=== PATIENT | female | born 1960 | race Caucasian/White ===

== ENCOUNTER 2018-02-25 18:16 | Outpatient (REF) | payer BC, SELFPAY ==
--- NOTE | 2018-02-25 14:20 | SKI_PTH ---
PATIENT: Macie Serrato LOC: [facility] U#:[id number] AGE/SX: 57/F ROOM: RE02/25/[address]: Douglas Perdomo DO : 1960 BED: DIS: 02/25/2018 SPEC #: [id number] RECD: 02/25/18 18:41 STATUS: BLANCA REMargaret #: [id number] KATE: 02/25/18 14:[address]: Douglas Perdomo DEPT: Surgical Specimen RECD BY: Simona Estes ENTERED: 02/25/18 18:41 SP TYPE: BALTAZAR OSPINA DR: Ynes Han MD, DC Tissues: 1 - SKIN BIOPSY(SHAVE/PUNCH) Procedures: SKIN LEVEL 4 Comments: [id number]
== END 2018-02-25 18:36 ==
LOC: LBN 18:16
PROVIDERS: PCP Family Medicine; Visit Provider Otolaryngology Otolaryngology/Facial Plastic Surgery
DX: D18.01 Hemangioma of skin and subcutaneous tissue (principal)
CPT/HCPCS: 88305

== ENCOUNTER 2021-03-10 17:04 | Outpatient (REF) | payer BC, SELFPAY ==
--- NOTE | 2021-03-10 14:30 | PAPFT_PTH ---
PATIENT: Macie Serrato LOC: [facility] U#:[id number] AGE/SX: 60/F ROOM: RE03/10/[address]: Ynes Han MD, DC : 1960 BED: DIS: 03/10/2021 SPEC #: [id number] RECD: 03/11/21 12:58 STATUS: BLANCA REQ #: [id number] KATE: 03/10/21 14:[address]: Ynes Han DEPT: [facility] Cytology RECD BY: Simona Estes Tissues: 1 - CX/ENDOCX FOR PAP SMEARS Procedures: PAP THIN PREP/[facility] Screening HPV DNA PROBE Comments: [id number]
== END 2021-03-10 17:05 | disposition home or self-care (01) ==
LOC: LBN 17:04
PROVIDERS: PCP Family Medicine; Visit Provider Family Medicine
DX: Z12.4 Encounter for screening for malignant neoplasm of cervix (principal); Z11.51 Encounter for screening for human papillomavirus (HPV)
CPT/HCPCS: 88142; 87624

== ENCOUNTER 2022-01-03 19:27 | Outpatient (REF) | payer BC, SELFPAY | END 2022-01-03 19:28 | disposition home or self-care (01) | LOC: LBN 19:27 | PROVIDERS: PCP Family Medicine; Visit Provider Nurse Practitioner Family | DX: J02.9 Acute pharyngitis, unspecified (principal) | CPT/HCPCS: 87070 ==

== ENCOUNTER 2022-09-20 03:13 | Outpatient (CLI) | payer BC, SELFPAY | END 2022-09-20 03:14 | disposition home or self-care (01) | LOC: LBO 03:13 | PROVIDERS: PCP Family Medicine ==

== ENCOUNTER 2024-02-28 03:41 | Outpatient (CLI) | payer MEDICARE, SELFPAY ==
[2024-02-28 09:57] LABS: Hemoglobin A1C 5.3 % (<5.7)
[2024-02-28 10:21] LABS: ALT 33 U/L (14-59); AST 19 U/L (15-37); Albumin 3.8 g/dL (3.4-5.0); Alkaline Phosphatase 86 U/L (46-116); Anion Gap 6.2 mmol/L (3-11); BUN 16 mg/dL (7-18); Bilirubin, Total 0.68 mg/dL (0.2-1.0); CO2 26.8 mmol/L (21.0-32.0); CREATININE 1.1 mg/dL (0.55-1.02); Calcium 9.1 mg/dL (8.5-10.1); Calculated LDL 164 mg/dL (<100); Chloride 105 mmol/L (98-107); Cholesterol 232 mg/dL (<200); Estimated GFR 55.76 (mL/min/1.73m2); Glucose 103 mg/dL (74-106); HDL Cholesterol 42 mg/dL (40-60); Potassium 4.3 mmol/L (3.5-5.1); Sodium 138 mmol/L (136-145); Total Protein 7.7 g/dL (6.4-8.2); Triglyceride 134 mg/dL (<150)
[2024-02-28 19:22] LABS: Hepatitis C Ab w Rflx HCV PCR Negative (Negative)
== END 2024-02-28 03:42 | disposition home or self-care (01) ==
LOC: LBO 03:41
PROVIDERS: PCP Family Medicine; Visit Provider Family Medicine
DX: Z13.6 Encounter for screening for cardiovascular disorders (principal); Z11.59 Encounter for screening for other viral diseases; I10 Essential (primary) hypertension; R73.03 Prediabetes; E66.9 Obesity, unspecified
CPT/HCPCS: 36415; 80053; 80061; 86803; 83036

== ENCOUNTER 2025-05-22 02:02 | Outpatient (CLI) | payer MEDICARE, SELFPAY ==
[2025-05-22 09:12] LABS: Hemoglobin A1C 5.1 % (<5.7)
[2025-05-22 09:36] LABS: ALT 20 U/L (10-49); AST 20 U/L (<34); Albumin 4.3 g/dL (3.2-5.0); Alkaline Phosphatase 80 U/L (46-116); Anion Gap 8.2 mmol/L (3-11); BUN 17 mg/dL (9-23); Bilirubin, Total 0.80 mg/dL (0.2-1.2); CO2 25.8 mmol/L (20.0-31.0); Calcium 9.7 mg/dL (8.3-10.6); Chloride 107 mmol/L (98-107); Cholesterol 207 mg/dL (<200); Glucose 94 mg/dL (74-106); HDL Cholesterol 40 mg/dL (>40); Potassium 3.8 mmol/L (3.5-5.1); Sodium 141 mmol/L (136-145); Total Protein 7.2 g/dL (5.7-8.2)
== END 2025-05-22 02:03 | disposition home or self-care (01) ==
LOC: LBO 02:02
PROVIDERS: PCP Family Medicine; Visit Provider Family Medicine
DX: E11.9 Type 2 diabetes mellitus without complications (principal); I10 Essential (primary) hypertension
CPT/HCPCS: 36415; 80053; 80061; 83036